=== PATIENT | male | born 1955 | race Caucasian/White ===

== ENCOUNTER 2017-05-29 02:46 | Emergency (ER) | payer OTHER ==
[~2017-05-29] VITALS: Ht 167.6 cm; Wt 75.0 kg
[2017-05-29 02:54] VITALS: BP 149/108; PULSE 108; RESP 16; TEMP 98.3; O2SAT 95
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
== END 2017-05-29 03:44 ==
LOC: NEPD 02:46
DX: S01.81XA Laceration without foreign body of other part of head, initial encounter (principal); Y04.2XXA Assault by strike against or bumped into by another person, initial encounter
CPT/HCPCS: 12011